=== PATIENT | female | born 1990 | race Caucasian/White ===

== ENCOUNTER 2023-01-10 07:49 | Emergency (ER) | payer OTHER ==
[2023-01-10 07:54] VITALS: BP 151/94; PULSE 51; RESP 20; TEMP 98.2; BMI 24.2
== END 2023-01-10 08:45 | disposition home or self-care (01) ==
LOC: FER 07:49
DX: S93.401A Sprain of unspecified ligament of right ankle, initial encounter (principal); M25.571 Pain in right ankle and joints of right foot; X50.1XXA Overexertion from prolonged static or awkward postures, initial encounter; Y93.02 Activity, running
CPT/HCPCS: 73610-TC-RT-FY; 99283-25

== ENCOUNTER 2023-10-20 05:14 | Emergency (ER) | payer OTHER ==
[2023-10-20 05:35] VITALS: BMI 24.2
[2023-10-20] MEDS ORDERED: ONDANSETRON 4 MG/2 ML VIAL ONE (05:51)
[2023-10-20] MEDS ORDERED: ACETAMINOPHEN INJECTION 100 ML IVPB ONE (05:57)
[2023-10-20] MEDS: SODIUM CHLORIDE 1,000 ML IV SCH (05:59)
[2023-10-20] MEDS: ONDANSETRON 4 MG/2 ML VIAL IVPB ONE (05:59)
[2023-10-20] MEDS: ACETAMINOPHEN 1000 MG/100 ML BAG IVPB ONE (06:01)
[2023-10-20 07:24] LABS: HEMATOCRIT 41.8 % (32.4-45.2); HEMOGLOBIN 14.1 GM/dL (10.7-15.3); MCH 30.5 pg (25.7-33.7); MCHC 33.8 g/dl (32.0-36.0); MEAN CELL VOLUME 90.2 fl (80-96); MEAN PLT VOLUME 9.3 fl (7.5-11.1); PLATELET COUNT 191 10^3/uL (134-434); RBC 4.63 M/mm3 (3.60-5.2); RDW 12.9 % (11.6-15.6); WHITE BLOOD COUNT 12.8 K/mm3 (4.0-10.0)
[2023-10-20 08:39] LABS: ALBUMIN 3.6 g/dl (3.4-5.0); BILIRUBIN,TOTAL 0.8 mg/dL (0.2-1); BLOOD UREA NITROGEN 14.4 mg/dL (7-18); CALCIUM 8.5 mg/dL (8.5-10.1); CREATININE 0.6 mg/dL (0.55-1.3)
[2023-10-20 09:21] VITALS: BP 120/76; PULSE 78; RESP 18; TEMP 98.6
== END 2023-10-20 10:02 | disposition home or self-care (01) ==
LOC: FER 05:14
PROC: 3E030NZ Introduction of Analgesics, Hypnotics, Sedatives into Peripheral Vein, Open Approach (ICD-10-PCS; principal; 2023-10-20)
PROC: 3E030GC Introduction of Other Therapeutic Substance into Peripheral Vein, Open Approach (ICD-10-PCS; 2023-10-20)
DX: R11.2 Nausea with vomiting, unspecified (principal)
CPT/HCPCS: 36415; 80053; 81025; 83690; 84703; 85027; 99284-25; J0131